=== PATIENT | female | born 1980 | race American Indian/Alaskan Native ===

== ENCOUNTER 2018-05-12 20:03 | Emergency (ER) | payer OTHER ==
[2018-05-12] MEDS ORDERED: IBUPROFEN PO ONE (20:13)
[2018-05-12] MEDS ORDERED: IBUPROFEN ONE (20:14)
[2018-05-12 21:25] LABS: Alanine Aminotransferase 19 units/L (7-56); Albumin 3.9 g/dL (3.9-5); BUN/Creatinine Ratio 9; Blood Urea Nitrogen 7 mg/dL (7-17); Calcium 8.9 mg/dL (8.4-10.2); Hemolysis Index 8
[2018-05-12] MEDS ORDERED: CLEOCIN 600 MG/50 mL 600 MG/50 ML BAG IV ONE (21:35)
[2018-05-12] MEDS ORDERED: NACL 0.9% 1000 ML IV ONE (21:35)
[2018-05-12] MEDS ORDERED: ZOFRAN IV ONE (21:42)
[2018-05-12] MEDS ORDERED: MORPHINE IV ONE (21:42)
[2018-05-12 21:45] LABS: Basophils % (Auto) 0.3 % (0.0-1.8); Eosinophils # (Auto) 0.2 K/mm3 (0.0-0.4); Eosinophils % (Auto) 2.9 % (0.0-4.3); Hematocrit 39.3 % (30.3-42.9); Hemoglobin 13.5 gm/dl (10.1-14.3); Lymphocytes # (Auto) 1.7 K/mm3 (1.2-5.4); Mean Corpuscular HGB Conc 34 % (30-34); Mean Corpuscular Volume 103 fl (79-97); Monocytes # (Auto) 0.5 K/mm3 (0.0-0.8); Monocytes % (Auto) 6.6 % (0.0-7.3); Platelet Count 338 K/mm3 (140-440)
--- NOTE | 2018-05-12 22:30 | Cat Scan Report ---
PROCEDURE: CT FACIAL BONES W CON HISTORY: dental infection, periorbital and facial swelling FINDINGS: Contrast-enhanced CT of the face was performed following the intravenous administration of iodinated contrast. There is left facial subcutaneous stranding consistent with cellulitis. There is an abscess lateral t o the left maxilla, axial image 63, coronal image 24, 1.5 x 0.5 x 1.4 cm. This is likely of dental or igin as there appears to be a periapical dental abscess of the left maxillary first premolar, best se en sagittal image 33. There are bilateral maxillary polyps versus mucus retention cyst. There is no evidence of acute sinus itis. The mastoid air cells and middle ears appear clear. IMPRESSION: Abscess immediately lateral to left maxilla with associated left facial cellulitis This document is electronically signed by Jonh Ha MD., May 12 2018 10:28:10 PM ET
[2018-05-12] MEDS ORDERED: DILAUDID IV ONE (23:40)
[2018-05-12] MEDS ORDERED: LIDOCAINE VISCOUS 2% MM NR (23:45)
--- NOTE | 2018-05-12 23:53 | Emergency Department Report ---
ED ENT HPI - General Chief complaint: Dental/Oral Stated complaint: ABSCESS Time Seen by Provider: 05/12/18 21:34 Source: patient Mode of arrival: Ambulatory Limitations: No Limitations - History of Present Illness Initial comments: 38-year-old female with no subcutaneous past medical history presents to Hospital complaining of left upper tooth ache and facial swelling. Patient developed pain to her left first premolar tooth with gum swelling. Today she developed swelling radiating to her face towards her eye. Pain is 10/10 intensity, constant, and worse with palpation. Patient denies fever, shortness of breath or difficulty swallowing. - Related Data Previous Rx's Medication Instructions Recorded Last Taken Type Clindamycin [Clindamycin CAP] 450 mg PO Q8HR 10 Days capsule 05/13/18 Unknown Rx HYDROcodone/APAP 5-325 [[place] 1 each PO Q6HR PRN #20 tablet 05/13/18 Unknown Rx 5/325] Ibuprofen [Motrin] 800 mg PO Q8HR PRN #30 tablet 05/13/18 Unknown Rx Allergies Allergy/AdvReac Type Severity Reaction Status Date / Time No Known Allergies Allergy Unverified 05/12/18 20:05 ED Dental HPI - General Chief complaint: Dental/Oral Stated complaint: ABSCESS Time Seen by Provider: 05/12/18 21:34 Source: patient Mode of arrival: Ambulatory Limitations: No Limitations - Related Data Previous Rx's Medication Instructions Recorded Last Taken Type Clindamycin [Clindamycin CAP] 450 mg PO Q8HR 10 Days capsule 05/13/18 Unknown Rx HYDROcodone/APAP 5-325 [[place] 1 each PO Q6HR PRN #20 tablet 05/13/18 Unknown Rx 5/325] Ibuprofen [Motrin] 800 mg PO Q8HR PRN #30 tablet 05/13/18 Unknown Rx Allergies Allergy/AdvReac Type Severity Reaction Status Date / Time No Known Allergies Allergy Unverified 05/12/18 20:05 ED Review of Systems ROS: Stated complaint: ABSCESS Other details as noted in HPI ED Past Medical Hx - Past Medical History Previous Medical History?: No - Surgical History Past Surgical History?: No - Social History Smoking Status: Current Every Day Smoker Substance Use Type: None - Medications Home Medications: Home Medications Medication Instructions Recorded Confirmed Last Taken Type Clindamycin [Clindamycin CAP] 450 mg PO Q8HR 10 Days capsule 05/13/18 Unknown Rx HYDROcodone/APAP 5-325 [[place] 1 each PO Q6HR PRN #20 tablet 05/13/18 Unknown Rx 5/325] Ibuprofen [Motrin] 800 mg PO Q8HR PRN #30 tablet 05/13/18 Unknown Rx ED Physical Exam - General Limitations: No Limitations - Other Other exam information: General: No limitations, patient is alert in no acute distress Head exam: Atraumatic, normocephalic Eyes exam: Normal appearance, pupils equal reactive to light, extraocular movements intact ENT: Moist mucous membrane, patient has a fractured tooth #5 with associated gum swelling and tenderness at the gingival mucosa. Tooth #4 is missing. Dental caries noted to tooth #3 Positive and tenderness noted to the buccal mucosa up to the infraorbital area with facial erythema Neck exam: Normal inspection, full range of motion, no meningismus nontender Respiratory exam: Clear to auscultation bilateral, no wheezes, rales, crackles Cardiovascular: Normal rate and rhythm, normal heart sounds Abdomen: Soft, nondistended, and nontender, with normal bowel sounds, no rebound, or guarding Extremity: Full range of motion normal inspection no deformity Back: Normal Inspection, full range of motion, no tenderness Neurologic: Alert, oriented x3, cranial nerves intact, no motor or sensory deficit Psychiatric: normal affect, normal mood Skin: Warm, dry, intact ED Course Vital Signs 05/12/18 05/12/18 05/12/18 20:07 20:14 21:36 Temperature 99.1 F Pulse Rate 107 H 84 Respiratory 18 18 15 Rate Blood Pressure 143/97 Blood Pressure [Right] O2 Sat by Pulse 100 100 Oximetry 05/12/18 05/12/18 05/12/18 21:46 21:50 22:16 Temperature Pulse Rate 85 90 98 H Respiratory 16 15 19 Rate Blood Pressure 129/92 132/80 Blood Pressure 129/92 [Right] O2 Sat by Pulse 100 100 Oximetry 05/12/18 05/12/18 05/12/18 22:18 22:30 22:46 Temperature Pulse Rate 88 90 89 Respiratory 16 20 15 Rate Blood Pressure 132/80 125/83 125/83 Blood Pressure [Right] O2 Sat by Pulse 100 100 99 Oximetry 05/12/18 05/12/18 05/13/18 23:18 23:38 00:30 Temperature Pulse Rate 82 87 82 Respiratory 16 16 22 Rate Blood Pressure 132/80 113/75 Blood Pressure 113/75 [Right] O2 Sat by Pulse 100 99 100 Oximetry 05/13/18 00:46 Temperature Pulse Rate 83 Respiratory 13 Rate Blood Pressure 113/75 Blood Pressure [Right] O2 Sat by Pulse 100 Oximetry - I & D Left Face Type of Procedure: Simple Site: apical abscess Blade Size: 11 Progress: topical viscous lidocaine 1 mL of injected lidocaine with epi Positive purulent drainage ED Medical Decision Making - Lab Data Result diagrams: 05/12/18 20:48 05/12/18 20:48 Lab Results 05/12/18 05/12/18 05/12/18 Range/Units 20:48 20:48 20:48 WBC 8.0 (4.5-11.0) K/mm3 RBC 3.80 (3.65-5.03) M/mm3 Hgb 13.5 (10.1-14.3) gm/dl Hct 39.3 (30.3-42.9) % MCV 103 H (79-97) fl MCH 36 H (28-32) pg MCHC 34 (30-34) % RDW 13.0 L (13.2-15.2) % Plt Count 338 (140-440) K/mm3 Lymph % (Auto) 21.0 (13.4-35.0) % Martin % (Auto) 6.6 (0.0-7.3) % Eos % (Auto) 2.9 (0.0-4.3) % Baso % (Auto) 0.3 (0.0-1.8) % Lymph # 1.7 (1.2-5.4) K/mm3 Martin # 0.5 (0.0-0.8) K/mm3 Eos # 0.2 (0.0-0.4) K/mm3 Baso # 0.0 (0.0-0.1) K/mm3 Seg Neutrophils % 69.2 (40.0-70.0) % Seg Neutrophils # 5.5 (1.8-7.7) K/mm3 Sodium 139 (137-145) mmol/L Potassium 3.6 (3.6-5.0) mmol/L Chloride 100.2 (98-107) mmol/L Carbon Dioxide 25 (22-30) mmol/L Anion Gap 17 mmol/L BUN 7 (7-17) mg/dL Creatinine 0.8 (0.7-1.2) mg/dL Estimated GFR > 60 ml/min BUN/Creatinine Ratio 9 % Glucose 164 H (65-100) mg/dL Lactic Acid 2.10 H* (0.7-2.0) mmol/L Calcium 8.9 (8.4-10.2) mg/dL Total Bilirubin 1.00 (0.1-1.2) mg/dL AST 21 (5-40) units/L ALT 19 (7-56) units/L Alkaline Phosphatase 88 (35-129) units/L Total Protein 7.4 (6.3-8.2) g/dL Albumin 3.9 (3.9-5) g/dL Albumin/Globulin Ratio 1.1 % 05/13/18 Range/Units 00:09 WBC (4.5-11.0) K/mm3 RBC (3.65-5.03) M/mm3 Hgb (10.1-14.3) gm/dl Hct (30.3-42.9) % MCV (79-97) fl MCH (28-32) pg MCHC (30-34) % RDW (13.2-15.2) % Plt Count (140-440) K/mm3 Lymph % (Auto) (13.4-35.0) % Martin % (Auto) (0.0-7.3) % Eos % (Auto) (0.0-4.3) % Baso % (Auto) (0.0-1.8) % Lymph # (1.2-5.4) K/mm3 Martin # (0.0-0.8) K/mm3 Eos # (0.0-0.4) K/mm3 Baso # (0.0-0.1) K/mm3 Seg Neutrophils % (40.0-70.0) % Seg Neutrophils # (1.8-7.7) K/mm3 Sodium (137-145) mmol/L Potassium (3.6-5.0) mmol/L Chloride (98-107) mmol/L Carbon Dioxide (22-30) mmol/L Anion Gap mmol/L BUN (7-17) mg/dL Creatinine (0.7-1.2) mg/dL Estimated GFR ml/min BUN/Creatinine Ratio % Glucose (65-100) mg/dL Lactic Acid 0.60 L (0.7-2.0) mmol/L Calcium (8.4-10.2) mg/dL Total Bilirubin (0.1-1.2) mg/dL AST (5-40) units/L ALT (7-56) units/L Alkaline Phosphatase (35-129) units/L Total Protein (6.3-8.2) g/dL Albumin (3.9-5) g/dL Albumin/Globulin Ratio % - Radiology Data Radiology results: report reviewed CT face with IV contrast: Abscess in the lateral to the left maxilla and assoc iated left facial cellulitis - Medical Decision Making Patient with a periapical abscess with associated facial cellulitis. Lactic acid and improved with no signs of severe sepsis. Patient treated with IV clindamycin and local I&D of periapical abscess. Antibiotics and pain medication will be continued as outpatient and dental follow-up encouraged - Differential Diagnosis cellulitis, dental abscess, facial abscess Critical Care Time: No Critical care attestation.: If time is entered above; I have spent that time in minutes in the direct care of this critically ill patient, excluding procedure time. ED Disposition Clinical Impression: Periapical abscess, Facial cellulitis Disposition: TO HOME OR SELFCARE Is pt being admited?: No Does the pt Need Aspirin: No Condition: Stable Instructions: Dental Abscess (ED), Cellulitis (ED) Additional Instructions: Take the medication as prescribed. Follow up with your doctor or the clinic/doctor provided. Return if symptoms worsen as indicated by your discharge instructions Prescriptions: Clindamycin [Clindamycin CAP] 450 mg PO Q8HR 10 Days capsule Ibuprofen [Motrin] 800 mg PO Q8HR PRN #30 tablet PRN Reason: Pain, Moderate (4-6) HYDROcodone/APAP 5-325 [[place] 5/325] 1 each PO Q6HR PRN #20 tablet PRN Reason: Pain Referrals: [facility] [Outside] - 2-3 Days [facility] [Other] - 2-3 Days (dentist ) Time of Disposition: 01:23
[2018-05-13] MEDS ORDERED: LIDOCAINE VISCOUS 2% PO ONE (00:03)
[2018-05-13] MEDS ORDERED: XYLOCAINE 2%/ EPI 1:200,000 INFILTRATI ONE (00:03)
[2018-05-13 02:28] VITALS: BP 127/81
== END 2018-05-13 02:28 | disposition home or self-care (01) ==
LOC: ED 20:03
DX: K04.7 Periapical abscess without sinus (principal); L03.211 Cellulitis of face; F17.200 Nicotine dependence, unspecified, uncomplicated
CPT/HCPCS: 36415; 41800; 70487; 80053; 82140; 85025; 87040; 96365; 96375; 99284; J1170; J2270; J2405; J7030; Q9967